=== PATIENT | female | born 1970 ===

== ENCOUNTER 2018-01-26 14:39 | Emergency (ER) | payer SELFPAY ==
[2018-01-26 14:48] VITALS: BMI 45.3
--- NOTE | 2018-01-26 15:58 | C.PDOC ---
History Of Present Illness 47 y/o female pt presents to the ER complaining of back pain s/p slip and fall yesterday. Pt states she slipped and fell onto her knees,. straining her back. She reports that at the time she felt no pain initially until later that night. Pt denies change in sensation, incontinence, weakness, direct trauma to her back, urinary symptoms and weaknesses. Pt notes she has a h/o kidney stones but states this is different. Time Seen by Provider: 01/26/18 15:07 Chief Complaint (Nursing): Back Pain History Per: Patient History/Exam Limitations: no limitations Onset/Duration Of Symptoms: Days (x1) Current Symptoms Are (Timing): Still Present Quality Of Discomfort: "Pain" Past Medical History Reviewed: Historical Data, Nursing Documentation, Vital Signs Vital Signs: Last Vital Signs Temp 98.5 F 01/26/18 14:48 Pulse 80 01/26/18 14:48 Resp 16 01/26/18 14:48 BP 160/90 H 01/26/18 14:48 Pulse Ox 98 01/26/18 14:48 - Medical History PMH: Anxiety, Bronchitis (2014), HTN, Kidney Stones (4 years ago; Passed without surgical intervention), Chronic Kidney Disease Surgical History: Endoscopy - [facility] Procedures ESOPHAGOGASTRODUODENOSCOPY [EGD] W/CLOSED BIOPSY (06/19/13) LAPAROSCOPIC ROBOTIC ASSISTED PROCEDURE (05/20/14) LAPAROSCOPIC VERTICAL (SLEEVE) GASTRECTOMY (05/20/14) OTHER ENDOSCOPY OF SM INTEST (05/20/14) Family History: States: Unknown Family Hx - Social History Hx Tobacco Use: No Hx Alcohol Use: No Hx Substance Use: No - Immunization History Hx Tetanus Toxoid Vaccination: No Hx Influenza Vaccination: No Hx Pneumococcal Vaccination: No Review Of Systems Except As Marked, All Systems Reviewed And Found Negative. Musculoskeletal: Positive for: Arm Pain (left elbow pain ), Back Pain (lower back pain ), Leg Pain (left knee pain ) Neurological: Negative for: Weakness, Other (change in sensation ) Physical Exam - Physical Exam Appears: Well, Non-toxic, No Acute Distress Skin: Normal Color, Warm, Dry Head: Atraumatic, Normacephalic Eye(s): bilateral: Normal Inspection, EOMI Nose: Normal Oral Mucosa: Moist Neck: Normal ROM, Supple Chest: Symmetrical Respiratory: No Accessory Muscle Use Gastrointestinal/Abdominal: Soft, No Tenderness Back: No CVA Tenderness, No Vertebral Tenderness, Muscle Spasm, Paraspinal Tenderness (b/l paralumbar tenderness ) Extremity: Normal ROM (x4), Capillary Refill (<2 sec), No Deformity, No Swelling Neurological/Psych: Oriented x3, Normal Speech, Normal Cognition, Normal Motor, Normal Sensation Gait: Steady ED Course And Treatment O2 Sat by Pulse Oximetry: 98 (RA) Pulse Ox Interpretation: Normal - Other Rad l/s xr X-Ray: Interpreted by Me, Viewed By Me Interpretation: no fx or dislocation Progress Note: Plans: -- naproxen. -- flexeril. -- LS Spine XR. On reassessment, patient is resting comfortably, and is in no acute distress. Patient is resting comfortably, with improvement of back pain. Patient remains afebrile, with no bony tenderness, extremity numbness or weakness, or abdominal pain. Patient is ambulatory in the emergency department with no signs of discomfort.Patient was instructed to follow up with physician/clinic in 1-2 days for further evaluation. Disposition - Disposition Disposition: HOME/ ROUTINE Disposition Time: 16:44 Condition: STABLE Additional Instructions: Vaya a dawkins mdico o la clnica en 2-5 ramos sin falta, para mas evaluacin. [place] los medicamentos yudith indicado. Volver a la abdullahi de emergencia en cualquier momento si los sntomas persisten o empeoran. 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 - Scribe Statement The provider has reviewed the documentation as recorded by the Luis Landaverde Do All medical record entries made by the Scribkaushal were at my direction and personally dictated by me. I have reviewed the chart and agree that the record accurately reflects my personal performance of the history, physical exam, medical decision making, and the department course for this patient. I have also personally directed, reviewed, and agree with the discharge instructions and disposition.
[2018-01-26] MEDS ORDERED: Naproxen 550 mg Tab PO STA (16:07)
[2018-01-26] MEDS ORDERED: Naproxen 550 mg Tab PO ONE (16:16)
[2018-01-26 16:52] VITALS: BP 153/84; PULSE 75; RESP 18; TEMP 98.4
--- NOTE | 2018-01-26 17:07 | RAD ---
Lumbar spine three views HISTORY: Back pain. COMPARISON: None available. Findings: Minimal retrolisthesis of L2 on L3 and L3 on L4. Multilevel anterior osteophytosis most prominent at the L1-2 and L2-3 levels. Lower level facet hypertrophy and sclerosis. Moderate fecal retention in the colon. Impression: Degenerative changes. If pain persists, consider MRI.
[2018-01-26 19:29] VITALS: O2SAT 98
== END 2018-01-26 17:08 | disposition home or self-care (01) ==
LOC: C.ER 14:39
DX: S39.012A Strain of muscle, fascia and tendon of lower back, initial encounter (principal); W01.0XXA Fall on same level from slipping, tripping and stumbling without subsequent striking against object, initial encounter

== ENCOUNTER 2018-04-15 11:17 | Outpatient (CLI) | payer MEDICAID | END 2018-04-15 11:18 | disposition home or self-care (01) | LOC: C.MAMMO 11:18 | DX: N64.52 Nipple discharge (principal) ==

== ENCOUNTER 2018-05-06 17:03 | Emergency (ER) | payer MEDICAID, OTHER ==
[2018-05-06 17:03] VITALS: BMI 45.3
[2018-05-06 17:24] VITALS: TEMP 98.6
--- NOTE | 2018-05-06 18:20 | C.PDOC ---
History Of Present Illness 47 year old female, with a PMHx of kidney stones x1, presents to the ED c/o right sided flank pain radiating to abdomen that initially began 2 weeks ago, but worsened today. Patient also reports that she had dysuria sometime in the p ast 2 weeks, but it has since resolved. She denies fever, vomiting, diarrhea, vaginal bleeding/discharge. Time Seen by Provider: 05/06/18 18:00 Chief Complaint (Nursing): Back Pain History Per: Patient History/Exam Limitations: no limitations Current Symptoms Are (Timing): Still Present Quality Of Discomfort: "Pain" Severity: Moderate Recent travel outside of the [place]: No Additional History Per: Patient Past Medical History Reviewed: Historical Data, Nursing Documentation, Vital Signs Vital Signs: Last Vital Signs Temp 98.6 F 05/06/18 17:16 Pulse 84 05/06/18 17:16 Resp 18 05/06/18 17:16 BP 133/87 05/06/18 17:16 Pulse Ox 99 05/06/18 17:16 - Medical History PMH: Anxiety, Bronchitis (2014), HTN ("I don't have it after Bariatric Surgery"), Kidney Stones (4 years ago; Passed without surgical intervention), Chronic Kidney Disease Surgical History: Endoscopy - [facility] Procedures ESOPHAGOGASTRODUODENOSCOPY [EGD] W/CLOSED BIOPSY (06/19/13) LAPAROSCOPIC ROBOTIC ASSISTED PROCEDURE (05/20/14) LAPAROSCOPIC VERTICAL (SLEEVE) GASTRECTOMY (05/20/14) OTHER ENDOSCOPY OF SM INTEST (05/20/14) Family History: States: No Known Family Hx - Social History Hx Tobacco Use: No Hx Alcohol Use: No Hx Substance Use: No - Immunization History Hx Tetanus Toxoid Vaccination: No Hx Influenza Vaccination: No Hx Pneumococcal Vaccination: No Review Of Systems Constitutional: Negative for: Fever Gastrointestinal: Negative for: Nausea, Vomiting, Abdominal Pain, Diarrhea Genitourinary: Negative for: Vaginal Discharge, Vaginal Bleeding Musculoskeletal: Positive for: Back Pain (right sided flank pain radiating to abdomen ) Skin: Negative for: Rash Physical Exam - Physical Exam Appears: Well, Non-toxic, No Acute Distress Skin: Normal Color, Warm, Dry Head: Normacephalic Eye(s): bilateral: Normal Inspection Oral Mucosa: Moist Neck: Normal ROM, Supple Cardiovascular: Rhythm Regular Respiratory: Normal Breath Sounds, No Rales, No Rhonchi, No Wheezing Gastrointestinal/Abdominal: Bowel Sounds, Soft, Tenderness (mild right sided periumbilical tenderness ), Other (obese, negative McBurney's and Parrish's ) Back: Other (right flank tenderness ) Extremity: Normal ROM Extremity: Bilateral: Atraumatic, Normal Color And Temperature, Normal ROM Neurological/Psych: Oriented x3 ED Course And Treatment - Laboratory Results Result Diagrams: 05/06/18 18:38 05/06/18 18:38 O2 Sat by Pulse Oximetry: 99 (on RA) Pulse Ox Interpretation: Normal Progress Note: Blood work, UA, Upreg, CT scan abd/pelvis ordered and reviewed. Patient given IV NS bolus, IV toradol. Disposition - Disposition Disposition Time: 19:00 Condition: STABLE Forms: [employer] (Maori) - Clinical Impression Clinical Impression: Right flank pain, Right low back pain - Scribe Statement The provider has reviewed the documentation as recorded by the Scribkaushal Arguello All medical record entries made by the Scribe were at my direction and personally dictated by me. I have reviewed the chart and agree that the record accurately reflects my personal performance of the history, physical exam, medical decision making, and the department course for this patient. I have also personally directed, reviewed, and agree with the discharge instructions and disposition. Physician Patient Turnover Patient Signed Over To: Catarina Giraldo Handoff Comments: pending UA, CT scan
[2018-05-06] MEDS: Sodium Chloride 0.9% 1,000 ML IV ONE (18:30)
[2018-05-06 18:53] LABS: BASO % 0.4 % (0.0-2.0); EOS # 0.3 K/uL (0.0-0.7); EOS % 3.1 % (0.0-4.0); HEMOGLOBIN 12.1 g/dL (11.0-16.0); LYMPH # 2.8 K/uL (1.0-4.3); LYMPH % 31.1 % (20.0-40.0); MEAN CELL VOLUME 82.3 fL (81.0-99.0); MEAN CORPUSCULAR HEMOGLOBIN 25.8 pg (27.0-31.0); MEAN CORPUSCULAR HGB CONC 31.3 g/dL (33.0-37.0); MEAN PLATELET VOLUME 8.1 fL (7.2-11.7); MONO # 0.3 K/uL (0.0-0.8); MONO % 3.8 % (0.0-10.0); NEUT # 5.6 K/uL (1.8-7.0); NEUT % 61.6 % (50.0-75.0); NRBC % 0.1 % (0.0-2.0); RBC 4.69 Mil/uL (3.80-5.20); RED CELL DISTRIBUTION WIDTH 16.1 % (11.5-14.5)
[2018-05-06 18:55] LABS: HCG,QUALITATIVE URINE NEGATIVE (NEGATIVE)
[2018-05-06 18:59] LABS: ALB/GLOB RATIO 1.3 (1.0-2.1); ALT/SGPT 17 U/L (9-52); AST/SGOT 26 U/L (14-36); BLOOD UREA NITROGEN 12 mg/dL (7-17); CALCIUM 8.8 mg/dl (8.6-10.4); GFR NON-AFRICAN AMERICAN > 60
[2018-05-06 19:09] LABS: SQUAMOUS EPITHIAL 1 /hpf (0-5); URINE BILIRUBIN NEGATIVE (NEGATIVE); URINE BLOOD 3+ (NEGATIVE); URINE CLARITY Hazy (Clear); URINE COLOR Yellow (YELLOW); URINE GLUCOSE (UA) NORMAL (Normal); URINE LEUKOCYTE ESTERASE NEG Leu/uL (Negative); URINE PROTEIN NEGATIVE (NEGATIVE); URINE UROBILINOGEN NORMAL mg/dL (0.2-1.0)
[2018-05-06 20:41] VITALS: BP 122/72; PULSE 70; RESP 16; O2SAT 98
--- NOTE | 2018-05-07 10:24 | CT ---
PROCEDURE: CT Abdomen and Pelvis without Oral or IV contrast. HISTORY: RIGHT FLANK PAIN R/O KIDNEY STONE COMPARISON: None available. TECHNIQUE: Contiguous axial images of the abdomen and pelvis. No oral or IV contrast administered. Coronal and Sagittal reformats generated and reviewed. Radiation dose: Total exam DLP = 1285.37 mGy-cm. This CT exam was performed using one or more of the following dose reduction techniques: Automated exposure control, adjustment of the mA and/or kV according to patient size, and/or use of iterative reconstruction technique. FINDINGS: There is limited evaluation of the solid organs without the administration of IV contrast. LOWER THORAX: No visible consolidation, pleural effusion, or pneumothorax. Partially imaged cardiomegaly. LIVER: Unremarkable unenhanced appearance. GALLBLADDER AND BILE DUCTS: Unremarkable unenhanced appearance. PANCREAS: Unremarkable unenhanced appearance. SPLEEN: Unremarkable unenhanced appearance. ADRENALS: Unremarkable unenhanced appearance. KIDNEYS AND URETERS: No hydronephrosis or obstructing renal calculus. BLADDER: The urinary bladder appears unremarkable. REPRODUCTIVE: Lobulated enlarged uterus presumed secondary to fibroids. APPENDIX: The appendix appears within normal limits of caliber. No secondary signs of acute appendicitis. BOWEL: The stomach is nondistended. Postsurgical gastric changes. Lack of oral contrast limits evaluation for bowel pathology. The bowel loops appear within normal limits of caliber without evidence of intestinal obstruction. PERITONEUM: No significant free fluid. No definite free air. LYMPH NODES: No bulky lymphadenopathy identified. VASCULATURE: No significant atherosclerotic calcifications of the aorta. No aortic aneurysm. BONES: Degenerative changes. OTHER FINDINGS: None. IMPRESSION: Fibroid uterus. Partially imaged cardiomegaly. Preliminary impression was provided by [employer].
== END 2018-05-06 20:41 | disposition home or self-care (01) ==
LOC: C.ER 17:03
DX: D25.9 Leiomyoma of uterus, unspecified (principal); R10.9 Unspecified abdominal pain; M54.5 Low back pain; I10 Essential (primary) hypertension
CPT/HCPCS: 74176; 80053; 81001; 84703; 85025; 87086; 96374; 99283; J1885; J7030